=== PATIENT | female | born 2005 | race Caucasian/White ===

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

== ENCOUNTER 2024-06-04 07:00 | Outpatient (CLI) | payer MEDICAID, OTHER ==
--- NOTE | 2024-06-04 16:44 | XRAY Report ---
PROCEDURE: Foot 3+V RT INDICATIONS: RIGHT FOOT PAIN TECHNIQUE: 3 views of the foot were acquired. COMPARISON: None. FINDINGS: Bones: No acute fractures or dislocations. An accessory ossicle is noted at the base of the first me tatarsal and No suspicious bony lesions. Soft tissues: No tibiotalar joint effusion. Achilles tendon appears normal. IMPRESSION: No acute bony abnormality. Reviewed by: Rosalinda Farooq MD on 06/04/2024 4:42 PM PDT Approved by: Rosalinda Farooq MD on 06/04/2024 4:42 PM PDT Station ID: [id number]
== END 2024-06-04 23:59 | disposition home or self-care (01) ==
LOC: DI.S 07:00
PROVIDERS: ATTEND Registered Nurse
DX: M79.671 Pain in right foot (principal)